=== PATIENT | male | born 1965 | race Caucasian/White ===

== ENCOUNTER 2024-08-17 01:09 | Emergency (ER) | payer SELFPAY ==
[2024-08-17] MEDS ORDERED: Sodium Chloride 0.9% 10 ML Syringe FLUSH PRN (01:17)
[2024-08-17] MEDS ORDERED: Sodium Chloride 0.9% 2.5 ML Syringe FLUSH PRN (01:17)
[2024-08-17] MEDS: Ondansetron 4 MG/2 ML SDV IVPUSH ONE (01:21)
[2024-08-17] MEDS: Morphine 4 MG/ML Syringe IVPUSH ONE (01:23)
[2024-08-17] MEDS: fentaNYL 50 MCG/ML SDV IVPUSH ONE (02:28)
== END 2024-08-17 03:45 | disposition home or self-care (01) ==
LOC: MW.ED 01:09
DX: S82.842A Displaced bimalleolar fracture of left lower leg, initial encounter for closed fracture (principal); Z90.49 Acquired absence of other specified parts of digestive tract; W19.XXXA Unspecified fall, initial encounter
CPT/HCPCS: 27810; 71100; 73610; 96374; 96375; 99283; J2270; J2405; J3010; 99284